=== PATIENT | female | born 1990 | race Caucasian/White ===

== ENCOUNTER 2017-02-05 22:10 | Inpatient (IN) | payer OTHER ==
[~2017-02-05] VITALS: Ht 167.6 cm; Wt 93.9 kg
[~2017-02-05 22:10] MED LIST: OXYC-360 PO; PREN0.01 PO
--- NOTE | 2017-02-05 23:32 | PD ---
History of Present Illness History of Present Illness NST report Indications: IUP at 40.1, post term , previous delivery desiring /trial of labor heart rate in the 140s with moderate long-term variability, good accelerations, no decelerations noted. The category 1 heart rate tracing and reactive NST Follow-up: with continued monitoring Final diagnosis: IUP at 40.1, post term , previous delivery desiring /trial of labor, labor at term Maria Del Rosario Lawton MD Feb 05, 2017 23:32
--- NOTE | 2017-02-05 23:32 | PD ---
HPI Chief Complaint contractions Travel History International Travel<30 Days: No Contact w/Intl Traveler<30Days: No Known Affected Area: No History of Present Illness HPI 26-year-old 2 para 1001, IUP at 40.1 care, complicated by history of prior delivery, history of osteomyelitis The patient presents complaining of irregular contractions since this morning. She reports that after her office appointment at 3:30 they increased in intensity and frequency to now every 2 minutes. There are no aggravating or alleviating 80 factors. There are no attempted treatments. The patient reports normal movement. Patient denies any leaking of fluid or vaginal bleeding. The patient desires a trial of labor. Her previous was performed for arrest of dilation and the OP presentation at 5 cm. Weeks Gestation: 40 Para: 1 : 2 History Obstetric History Obstetric History 001 Full-term delivery 1 Past Surgical History Narrative Surgical section, leg surgery Family History Narrative Family History DM, colon cancer Social History Alcohol Use: No Tobacco Use: No Substance Abuse: No Allergies-Medications (Allergen,Severity, Reaction): Coded Allergies: No Known Allergies (Verified Allergy, Unknown, 02/06/17) Home Meds Reported Medications Multivit/Min/Fol Ac/Iron/Pren ( Vit ( Plus)) 27 Mg Iron-1 Mg Tab , 1 TAB PO DAILY 03/21/10 Discontinued Reported Medications Oxycodone/Acetaminophen (Percocet) 5 Mg/325 Mg Tab, 1 - 2 TAB PO Q6HPRN, #30 FOR PAIN 03/24/10 Review of Systems Except as stated in HPI: all other systems reviewed are Neg Physical Exam Narrative GENERAL: Well-nourished, well-developed patient. SKIN: Warm and dry. HEAD: Normocephalic and atraumatic. EYES: No scleral icterus. No injection or drainage. ENT: No nasal drainage noted. Mucous membranes pink. Airway patent. NECK: Supple, trachea midline. No JVD. CARDIOVASCULAR: Regular rate and rhythm without murmurs, gallops, or rubs. RESPIRATORY: Breath sounds equal bilaterally. No accessory muscle use. BREASTS: Deferred ABDOMEN/GI: Abdomen soft, non-tender, bowel sounds present, no rebound, no guarding Gravid GENITOURINARY: External Genitalia: intact and normal in appearance. Normal BUS. No cervical or vaginal masses noted. Grossly normal rugae and physiologic discharge. SVE 4/70/-1 with very posterior cervix FHT's: heart tones are in the 140s with moderate long-term variability, good excels and no decels. This is category 1 heart rate tracing and a reactive NST EXTREMITIES: No cyanosis or edema. BACK: Nontender without obvious deformity. No CVA tenderness. NEUROLOGICAL: Awake and alert. Motor and sensory grossly within normal limits. Five out of 5 muscle strength in all muscle groups. Normal speech. Psychiatric: Grossly normal memory and affect Musculoskeletal: Grossly normal range of motion, gait, muscle strength MDM Plan Assessment/plan: 1. IUP at 40.1 2. Late latent versus early phase labor: Contractions at term. Patient made cervical change and is requesting epidural for pain so will admit for labor at term. Patient cervix is still posterior so she still may be in the latent phase of labor, will expectantly manage for now and AROM and or augment if needed 3. Previous delivery requesting a trial of labor: Discussed with patient the risks benefits and alternatives to an attempted /trial of labor. We discussed the risks that could include uterine rupture of up to 1% and a potential catastrophic event if uterine rupture occurred of 1% which could include significant maternal or morbidity or mortality. We discussed that this risk is low but that if the fetus started having a nonreassuring heart rate tracing it would be indication for delivery due to the concern of uterine rupture. The [facility] calculator was utilized with estimated success rate of 51.3%. However, because she has presented in labor, the modified calculator that incorporates labor factors shows a success rate of up to 70.4%. We discussed that if she desires, it is reasonable for a trial of labor. She desires a trial of labor. We discussed the judicious use of oxytocin if indicated. We discussed the other indications for delivery including indications as well as maternal indications of arrest of dilation or descent. The patient desires natural labor if possible. We discussed that expectant management is reasonable, but if her labor appeared to become protracted we would attempt oxytocin with her permission prior to proceeding with delivery. All of her questions were answered and consents were signed. She is in agreement for if indicated for maternal or factors. 4. well-being: Reassuring testing with reactive NST and category 1 heart rate tracing 5. History of osteomyelitis 6. GBS positive: Will give penicillin G for GBS prophylaxis Maria Del Rosario Lawton MD Feb 05, 2017 23:32
[2017-02-06] VITALS (45 sets, daily range): BP systolic 88–138; BP diastolic 36–96; PULSE 68–131; RESP 16–18; TEMP 97.7–98.5; O2SAT 98–99
[2017-02-06] MEDS ORDERED: LACTATED RINGER'S 1000 ML INJ 1,000 ML IV SCH (01:32)
[2017-02-06] MEDS ORDERED: LACTATED RINGER'S 1000 ML INJ 1,000 ML IV PRN (01:32)
[2017-02-06] MEDS ORDERED: fentaNYL 2MCG-BUPIV 0.125% INJ 100 ML ONE (01:43)
[2017-02-06] MEDS ORDERED: LIDOCAINE HCL 1% 50 ML VIAL I-DERMAL PRN (01:45)
[2017-02-06] MEDS ORDERED: OXYTOCIN 30 UNITS-500ML PREMIX 500 ML IV ONE (01:45)
[2017-02-06] MEDS ORDERED: SODIUM CHLORID 0.9% 500 ML INJ 500 ML IV PRN (01:45)
[2017-02-06] MEDS ORDERED: MINERAL OIL 10 ML VIAL TOPICAL PRN (01:45)
[2017-02-06] MEDS ORDERED: PENICILLIN G POTASSIUM INJ 5,000,000 UNITS in SODIUM CHLORIDE 0.9% INJ 100 ML IV ONE (01:45)
[2017-02-06] MEDS ORDERED: LIDOCAINE HCL 1% 50 ML VIAL INFIL PRN (01:45)
[2017-02-06] MEDS ORDERED: CITRIC ACID-SODIUM CITRATE LIQ 30 ML UDC PO SCH (01:45)
--- NOTE | 2017-02-06 01:47 | HHI.HP ---
History & Physical H&P Patient Name: Madonna Ibarra Unit Number: [id number] Date of : 1990 Patient Status: Admitted Inpatient Attending Doctor: Maria Del Rosario Lawton MD HPI HPI Chief Complaint contractions Travel History International Travel<30 Days: No Contact w/Intl Traveler<30Days: No Known Affected Area: No History of Present Illness HPI 26-year-old 2 para 1001, IUP at 40.1 care, complicated by history of prior delivery, history of osteomyelitis The patient presents complaining of irregular contractions since this morning. She reports that after her office appointment at 3:30 they increased in intensity and frequency to now every 2 minutes. There are no aggravating or alleviating 80 factors. There are no attempted treatments. The patient reports normal movement. Patient denies any leaking of fluid or vaginal bleeding. The patient desires a trial of labor. Her previous was performed for arrest of dilation and the OP presentation at 5 cm. Weeks Gestation: 40 Para: 1 : 2 History (Limited) History Obstetric History Obstetric History 001 Full-term delivery 1 Past Surgical History Narrative Surgical section, leg surgery Family History Narrative Family History DM, colon cancer Social History Alcohol Use: No Tobacco Use: No Substance Abuse: No Allergies-Medications Allergies-Medications (Allergen,Severity, Reaction): Coded Allergies: No Known Allergies (Verified Allergy, Unknown, 02/06/17) Home Meds Reported Medications Multivit/Min/Fol Ac/Iron/Pren ( Vit ( Plus)) 27 Mg Iron-1 Mg Tab , 1 TAB PO DAILY 03/21/10 Discontinued Reported Medications Oxycodone/Acetaminophen (Percocet) 5 Mg/325 Mg Tab, 1 - 2 TAB PO Q6HPRN, #30 FOR PAIN 03/24/10 ROS Review of Systems Except as stated in HPI: all other systems reviewed are Neg Physical Exam Physical Exam Narrative GENERAL: Well-nourished, well-developed patient. SKIN: Warm and dry. HEAD: Normocephalic and atraumatic. EYES: No scleral icterus. No injection or drainage. ENT: No nasal drainage noted. Mucous membranes pink. Airway patent. NECK: Supple, trachea midline. No JVD. CARDIOVASCULAR: Regular rate and rhythm without murmurs, gallops, or rubs. RESPIRATORY: Breath sounds equal bilaterally. No accessory muscle use. BREASTS: Deferred ABDOMEN/GI: Abdomen soft, non-tender, bowel sounds present, no rebound, no guarding Gravid GENITOURINARY: External Genitalia: intact and normal in appearance. Normal BUS. No cervical or vaginal masses noted. Grossly normal rugae and physiologic discharge. SVE 4/70/-1 with very posterior cervix FHT's: heart tones are in the 140s with moderate long-term variability, good excels and no decels. This is category 1 heart rate tracing and a reactive NST EXTREMITIES: No cyanosis or edema. BACK: Nontender without obvious deformity. No CVA tenderness. NEUROLOGICAL: Awake and alert. Motor and sensory grossly within normal limits. Five out of 5 muscle strength in all muscle groups. Normal speech. Psychiatric: Grossly normal memory and affect Musculoskeletal: Grossly normal range of motion, gait, muscle strength Data Data [facility] Plan Assessment/plan: 1. IUP at 40.1 2. Late latent versus early phase labor: Contractions at term. Patient made cervical change and is requesting epidural for pain so will admit for labor at term. Patient cervix is still posterior so she still may be in the latent phase of labor, will expectantly manage for now and AROM and or augment if needed 3. Previous delivery requesting a trial of labor: Discussed with patient the risks benefits and alternatives to an attempted /trial of labor. We discussed the risks that could include uterine rupture of up to 1% and a potential catastrophic event if uterine rupture occurred of 1% which could include significant maternal or morbidity or mortality. We discussed that this risk is low but that if the fetus started having a nonreassuring heart rate tracing it would be indication for delivery due to the concern of uterine rupture. The [facility] calculator was utilized with estimated success rate of 51.3%. However, because she has presented in labor, the modified calculator that incorporates labor factors shows a success rate of up to 70.4%. We discussed that if she desires, it is reasonable for a trial of labor. She desires a trial of labor. We discussed the judicious use of oxytocin if indicated. We discussed the other indications for delivery including indications as well as maternal indications of arrest of dilation or descent. The patient desires natural labor if possible. We discussed that expectant management is reasonable, but if her labor appeared to become protracted we would attempt oxytocin with her permission prior to proceeding with delivery. All of her questions were answered and consents were signed. She is in agreement for if indicated for maternal or factors. 4. well-being: Reassuring testing with reactive NST and category 1 heart rate tracing 5. History of osteomyelitis 6. GBS positive: Will give penicillin G for GBS prophylaxis Maria Del Rosario Lawton MD Feb 05, 2017 23:32 Maria Del Rosario Lawton MD Feb 06, 2017 01:47
[2017-02-06] MEDS ORDERED: SODIUM CHLOR 0.9% 1000 ML INJ 1,000 ML IV PRN (01:52)
[2017-02-06 02:09] LABS: BLOOD, URINE NEG (NEG); GLUCOSE,URINE NEG (NEG); KETONE, URINE NEG (NEG); NITRITE,URINE NEG (NEG); SQUAMOUS EPITHELIAL CELL URINE 1 /hpf (0-5); URINE COLOR LIGHT-YELLOW (YELLW/STRAW)
[2017-02-06 02:10] LABS: AUTOMATED NEUTROPHIL # 12.1 TH/MM3 (1.8-7.7); BASOPHIL % 0.2 % (0.0-2.0); EOSINOPHIL % 0.1 % (0.0-4.0); HEMATOCRIT 38.3 % (35.0-46.0); HEMO FLAGS DIFF FINAL; LYMPHOCYTE # 2.1 TH/MM3 (1.0-4.8); MEAN CELL VOLUME 85.2 FL (80.0-100.0); MEAN CORPUSCULAR HEMOGLOBIN 29.5 PG (27.0-34.0); MEAN CORPUSCULAR HGB CONC 34.6 % (32.0-36.0); MONO % 4.2 % (0.0-8.0); NEUT % 81.5 % (16.0-70.0); PLATELET COUNT 174 TH/MM3 (150-450); RED CELL DISTRIBUTION WIDTH 13.9 % (11.6-17.2); WHITE BLOOD COUNT 14.9 TH/MM3 (4.0-11.0)
[2017-02-06 02:10] LABS: COMMENT (UR) CULT NOT INDICATED; CULTURE IF INDICATED CULT NOT INDICATED
[2017-02-06] MEDS ORDERED: NO SYSTEM NARCOTICS PRN (03:45)
[2017-02-06] MEDS ORDERED: ePHEDrine/NS 25 MG/5 ML SYR IV PUSH PRN (03:45)
[2017-02-06] MEDS ORDERED: DO NOT ADMINISTER ANTICOAGULANTS PRN (03:45)
[2017-02-06] MEDS: fentaNYL 2MCG-BUPIV 0.125% 100 ML EPIDURAL SCH ×2 (03:49→08:02)
[2017-02-06] MEDS: PENICILLIN G POTASSIUM INJ 2,500,000 UNITS in SODIUM CHLORIDE 0.9% INJ 100 ML IV SCH ×2 (06:00→10:00)
--- NOTE | 2017-02-06 08:21 | PD.LABORPN ---
Subjective Subjective 26 YO at 40/1 weeks laboring 7cm/100%/-1/vtx after SROM at 0815. Cat 1 tracing, BL 130, reactive, moderate, no decels Objective Vital Signs Vital Signs Date Time Temp Pulse Resp B/P (MAP) Pulse Ox O2 Delivery O2 Flow Rate FiO2 02/06/17 07:30 93 124/77 (93) 02/06/17 07:14 98.5 02/06/17 07:13 18 02/06/17 07:01 113 131/69 (89) 02/06/17 07:01 90 88/72 (77) 02/06/17 06:30 77 108/62 (77) 02/06/17 06:00 76 103/62 (76) 02/06/17 05:30 75 102/54 (70) 02/06/17 05:00 86 112/64 (80) 02/06/17 04:30 86 95/54 (68) 02/06/17 04:00 71 103/60 (74) 02/06/17 03:49 18 02/06/17 03:37 97.9 16 02/06/17 03:31 82 105/54 (71) 02/06/17 03:30 131 02/06/17 03:13 79 103/50 (67) 02/06/17 03:06 86 117/70 (86) 02/06/17 03:05 80 02/06/17 03:03 81 121/67 (85) 02/06/17 03:00 77 111/63 (79) 02/06/17 03:00 80 02/06/17 02:57 73 112/67 (82) 02/06/17 02:55 83 02/06/17 02:54 82 111/62 (78) 02/06/17 02:52 83 120/66 (84) 02/06/17 02:50 84 02/06/17 02:49 86 122/36 (64) 02/06/17 02:45 84 115/61 (79) 02/06/17 02:45 86 02/06/17 02:42 88 112/65 (81) 02/06/17 02:40 96 02/06/17 02:39 91 124/69 (87) 02/06/17 02:36 103 138/96 (110) 02/06/17 02:35 82 Objective Pelvic Exam: Cervix: ante Dilatation: 8 Effacement: 100 Station: -1 Presentation: vtx Membranes: SROM 0820 Uterine Contractions: - FHT's: Category: 1 Baseline: 130 Reactive: yes Variability: moderate Decels: none Weeks Gestation: 40 Pt started active labor?: Yes Active labor start date: Feb 06, 2017 Active labor start time: 02:00 Medical induction of labor?: No Artificial rupture of membrane: No Assessment/Plan Assessment and Plan 26YO at 40/1 weeks laboring at 8/100/-1/vtx and Cat 1 tracing w/BL 130, reactive, moderate, no decels PLAN: -Continue labor -Epidural PRN -Prepare for delivery Tank Obrien MD R1 Feb 06, 2017 08:21
[2017-02-06] MEDS ORDERED: LIDOCAINE 2%/EPINEPHrine PF 1:200,000 20ML SDV ONE (08:53)
[2017-02-06] MEDS ORDERED: OXYTOCIN 10 UNIT/ML AMP ONE (11:02)
--- NOTE | 2017-02-06 11:40 | PD.OB.DELI ---
Weeks gestation: 40 Pt started active labor?: Yes Active labor start date: Feb 06, 2017 Active labor start time: 02:00 Medical induction of labor?: No Artificial rupture of membrane: No Anesthesia: Epidural Episiotomy: None Vaginal Delivery: Normal, Spontaneous, Presentation: Occiput anterior, Vertex Nuchal Cord: None Delayed cord clamping (45 sec): Yes : Male, Single Delivery date: Feb 06, 2017 Delivery time: 10:55 One Minute : 9 Five Minute : 9 Placenta: Spontaneous delivery, Intact Laceration: Vaginal laceration, Perineal laceration, 2 deg Estimated blood loss: 300cc Additional Information 26YO delivered via () at 40/1 weeks. 2nd degree vaginal and perineal lacerations repaired by chromic running sutures w/EBL 300cc. Delivery and laceration repair by Dr Obrien and supervised by Dr Craig. Tank Obrien MD R1 Feb 06, 2017 11:40
[2017-02-06] MEDS ORDERED: ONDANSETRON ODT 4 MG TAB PO PRN (11:45)
[2017-02-06] MEDS ORDERED: SODIUM CHLORIDE 0.9% FLUSH 10 ML FLUSH IV FLUSH PRN (11:45)
[2017-02-06] MEDS ORDERED: OXYTOCIN 30 UNITS-500ML PREMIX 500 ML IV SCH (11:45)
[2017-02-06] MEDS ORDERED: IBUPROFEN 800 MG TAB PO PRN (11:45)
[2017-02-06] MEDS ORDERED: ALUMINUM/MAGNESIUM/SIMETH 30 ML CUP PO PRN (11:45)
[2017-02-06] MEDS ORDERED: ZOLPIDEM TARTRATE 5 MG TAB PO PRN (11:45)
[2017-02-06] MEDS ORDERED: DOCUSATE SODIUM 50 MG/SENNA 8.6 MG TAB PO PRN (11:45)
[2017-02-06] MEDS ORDERED: ACETAMINOPHEN 325 MG TAB PO PRN (11:45)
[2017-02-06] MEDS ORDERED: WITCH HAZEL 50%/GLYCERIN 12.5% 40 PAD JAR TOPICAL PRN (11:45)
[2017-02-06] MEDS ORDERED: BENZOCAINE 20% TOPICAL SPRAY 60 ML CAN TOPICAL PRN (11:45)
[2017-02-06] MEDS ORDERED: DIPHTH/TETANUS/ACEL PERTUSSIS (BOOSTER) 0.5 ML VIAL/PFS IM ONE (16:00)
[2017-02-06] MEDS ORDERED: MEASLES, MUMPS, RUBELLA VACCINE 0.5 ML VIAL SQ ONE (16:00)
[2017-02-06] MEDS ORDERED: SODIUM CHLORIDE 0.9% FLUSH 10 ML FLUSH IV FLUSH SCH (21:00)
[2017-02-07 08:00] VITALS: BP 90/56; PULSE 89; RESP 16; TEMP 98; O2SAT 95
--- NOTE | 2017-02-07 09:47 | HHI.OB ---
Subjective Post Day: 1 Remarks Ms Ibarra had no acute events overnight. She says she didn't sleep well, but feels pain is controlled, ambulating w/o dizziness, taking PO, voiding and a little flatus but no BM. Lochia is about the same as a period. . Denies CP, SOB, N/V/D, and DVT pain. Objective Vitals/I&O Vital Signs Date Time Temp Pulse Resp B/P (MAP) Pulse Ox O2 Delivery O2 Flow Rate FiO2 02/07/17 08:00 98.0 89 16 90/56 (67) 95 02/06/17 20:20 85 16 99/57 (71) 02/06/17 20:20 97.7 02/06/17 16:20 98.4 82 16 113/58 (76) 02/06/17 12:30 88 108/58 (75) 02/06/17 12:00 85 118/62 (80) 02/06/17 11:31 105 107/63 (78) 02/06/17 11:30 18 02/06/17 11:19 104 109/59 (76) 02/06/17 11:00 91 125/67 (86) 02/06/17 10:30 90 02/06/17 10:30 100 127/64 (85) 99 02/06/17 10:25 87 98 02/06/17 10:00 80 120/67 (84) Objective Remarks GENERAL: Well-nourished, well-developed patient lying in bed in NAD. CARDIOVASCULAR: Regular rate and rhythm without murmur, gallop, or rub. RESPIRATORY: Breath sounds equal bilaterally in all lung silverman. No accessory muscle use. No incresed WOB. ABDOMEN/GI: Abdomen soft, non-tender. Normal BS. Fundus: Firm, non-tender below umbilicus. Normal BS. GENITOURINARY: Light to moderate bleeding. EXTREMITIES: No cyanosis or edema, non-tender, without signs of DVT. Medications and IVs Current Medications Medications (Trade) Dose Ordered Sig/Damian Route Start Time Stop Time Status Last Admin (NS Flush) 2 ml BID IV FLUSH 02/06/17 21:00 (NS Flush) 2 ml UNSCH PRN IV FLUSH 02/06/17 11:45 (Tylenol) 650 mg Q4H PRN PO 02/06/17 11:45 (Motrin) 800 mg Q8H PRN PO 02/06/17 11:45 02/06/17 17:41 (Americaine 20% Top Spr) 1 spray Q4H PRN TOPICAL 02/06/17 11:45 (Tucks Pads) 1 applic QID PRN TOPICAL 02/06/17 11:45 (Ani-Colace) 2 tab Q12H PRN PO 02/06/17 11:45 (Ambien) 5 mg HS PRN PO 02/06/17 11:45 (Mag-Al Plus Susp Liq) 15 ml Q8H PRN PO 02/06/17 11:45 (Zofran Odt) 4 mg Q6H PRN PO 02/06/17 11:45 Assessment/Plan Assessment and Plan 26YO PPD#1 delivered at 40/1 via /. AFVSS with one isolated BP 99/ 57. Pt pain is controlled on ibuprofen, ambulating w/o dizziness, taking PO, voiding and small amt of flatus but no BM yet. Lochia is about same as a period. Denies CP, SOB, N/V/D, DVT pain. PLAN: -Routine care -Ibuprofen and/or percocet PRN for pain -Advised showers only (no baths) for 2-3 weeks; vaginal rest for 6 weeks (no sexual intercourse) -Pt will follow-up with doctor in 6 weeks for visit -Pt considering control options at this time Discharge likely tomorrow Pt discussed with Tank Negron MD R1 Feb 07, 2017 09:47
[2017-02-07] MEDS ORDERED: PNEUMOCOCCAL POLYVALENT INJ 25 MCG/0.5 ML SYR IM ONE (10:00)
[2017-02-07 19:50] VITALS: BP 105/65; PULSE 75; RESP 16; TEMP 97.7
[2017-02-08 08:00] VITALS: BP 94/59; PULSE 75; RESP 15; TEMP 98.5; O2SAT 97
--- NOTE | 2017-02-08 08:54 | HHI.OB ---
Subjective Post Day: 2 Remarks day #2 AFVSS overnight. Decreased lochia. Denies dysuria. No breast tenderness. She is feeding the baby via breast. Appetite good. No nausea or vomiting. Ambulating well. Denies calf pain or shortness of breath. Otherwise, she is doing well this morning and has no other complaints. Objective Vitals/I&O Vital Signs Date Time Temp Pulse Resp B/P (MAP) Pulse Ox O2 Delivery O2 Flow Rate FiO2 02/07/17 19:50 97.7 75 16 105/65 (78) Objective Remarks GENERAL: Well-nourished, well-developed patient lying in bed in NAD. CARDIOVASCULAR: Regular rate and rhythm without murmur, gallop, or rub. RESPIRATORY: Breath sounds equal bilaterally in all lung silverman. No accessory muscle use. No incresed WOB. ABDOMEN/GI: Abdomen soft, non-tender. Normal BS. Fundus: Firm, non-tender below umbilicus. Normal BS. GENITOURINARY: Light to moderate bleeding. EXTREMITIES: No cyanosis or edema, non-tender, without signs of DVT. Medications and IVs Current Medications Medications (Trade) Dose Ordered Sig/Damian Route Start Time Stop Time Status Last Admin (NS Flush) 2 ml BID IV FLUSH 02/06/17 21:00 (NS Flush) 2 ml UNSCH PRN IV FLUSH 02/06/17 11:45 (Tylenol) 650 mg Q4H PRN PO 02/06/17 11:45 (Motrin) 800 mg Q8H PRN PO 02/06/17 11:45 02/06/17 17:41 (Americaine 20% Top Spr) 1 spray Q4H PRN TOPICAL 02/06/17 11:45 (Tucks Pads) 1 applic QID PRN TOPICAL 02/06/17 11:45 (Ani-Colace) 2 tab Q12H PRN PO 02/06/17 11:45 (Ambien) 5 mg HS PRN PO 02/06/17 11:45 (Mag-Al Plus Susp Liq) 15 ml Q8H PRN PO 02/06/17 11:45 (Zofran Odt) 4 mg Q6H PRN PO 02/06/17 11:45 Assessment/Plan Assessment and Plan 26YO PPD#2 delivered at 40/1 via /. AFVSS with one isolated BP 99/ 57. Pt pain is controlled on ibuprofen, ambulating w/o dizziness, taking PO, voiding and small amt of flatus but no BM yet. Lochia is about same as a period. Denies CP, SOB, N/V/D, DVT pain. PLAN: -Routine care -Ibuprofen and/or percocet PRN for pain -Advised showers only (no baths) for 2-3 weeks; vaginal rest for 6 weeks (no sexual intercourse) -Pt will follow-up with doctor in 6 weeks for visit -Pt considering using [place] comp for control, fertility monitoring Discharge likely today Humphrey Macdonald MD R1 Feb 08, 2017 08:54
[2017-02-08 08:58] VITALS: BP 94/59
[2017-02-08] MEDS ORDERED: IBUP1TAB7 PO (09:01)
[2017-02-08] MEDS ORDERED: PERI PO (09:01)
--- NOTE | 2017-02-08 09:02 | HHI.DCPOC ---
Discharge Care Plan Diagnosis: (1) Vaginal delivery Report Symptoms to Your Doctor -Temperature above 100.5 degrees -Redness, of incision or excessive or foul smelling drainage -Unusual pain or calf pain -Increased vaginal bleeding -Painful or difficulty urinating -Feelings of extreme sadness or anxiety after 2 weeks Goals to Promote Your Health * To prevent worsening of your condition and complications * To maintain your health at the optimal level Directions to Meet Your Goals Take your medications as prescribed Follow your dietary instruction Follow activity as directed Ensure plenty of rest for recovery Drink fluids for hydration Keep your appointments as scheduled Take your immunizations and boosters as scheduled If your symptoms worsen call your PCP, if no PCP go to Urgent Care Center or Emergency Room Smoking is Dangerous to Your Health. Avoid second hand smoke Call the 24-hour crisis hotline for domestic abuse at Humphrey Macdonald MD R1 Feb 08, 2017 09:02
== END 2017-02-08 12:12 | disposition home or self-care (01) | DRG 775 ==
LOC: HOBED 22:10 → H2EB 02-06 01:17 → H1EA 02-06 12:58
PROVIDERS: ADMIT Obstetrics & Gynecology; ATTEND Obstetrics & Gynecology
PROC: 10E0XZZ Delivery of Products of Conception, External Approach (ICD-10-PCS; principal; 2017-02-06)
PROC: 0KQM0ZZ Repair Perineum Muscle, Open Approach (ICD-10-PCS; 2017-02-06)
PROC: 00HU33Z Insertion of Infusion Device into Spinal Canal, Percutaneous Approach (ICD-10-PCS; 2017-02-06)
PROC: 3E0R3BZ Introduction of Anesthetic Agent into Spinal Canal, Percutaneous Approach (ICD-10-PCS; 2017-02-06)
DX: O48.0 Post-term pregnancy (principal); O70.1 Second degree perineal laceration during delivery; Z37.0 Single live birth; O34.219 Maternal care for unspecified type scar from previous cesarean delivery; Z22.330 Carrier of Group B streptococcus; Z80.0 Family history of malignant neoplasm of digestive organs; Z3A.40 40 weeks gestation of pregnancy; Z83.3 Family history of diabetes mellitus
CPT/HCPCS: 59025; 80307; 81001; 85025; 86703; 86900; 86901; 90715; J2540; J2590; J7120